=== PATIENT | male | born 1985 ===

== ENCOUNTER 2018-08-22 23:03 | Emergency (ER) | payer SELFPAY ==
[2018-08-22 23:11] VITALS: BP 137/87; PULSE 56; RESP 16; TEMP 98; O2SAT 98
--- NOTE | 2018-08-22 23:29 | C.PDOC ---
History Of Present Illness Patient presents with diffuse abdominal pain has had it for "years" and states he has been worked up without any etiology found. Worse this am. Cramping abdominal pain. No f/c/n/v. Tolerating po. Time Seen by Provider: 08/22/18 23:29 Chief Complaint (Nursing): Abdominal Pain Past Medical History Reviewed: Historical Data, Nursing Documentation, Vital Signs Vital Signs: Last Vital Signs Temp 98.0 F 08/22/18 23:08 Pulse 56 L 08/22/18 23:08 Resp 16 08/22/18 23:08 BP 137/87 08/22/18 23:08 Pulse Ox 98 08/22/18 23:08 - Medical History PMH: HTN - [facility] Procedures CLOSURE SKIN & SUBCUTANEOUS NEC (05/23/14) INJECT/INFUSE NEC (09/29/13) Family History: States: No Known Family Hx - Social History Hx Tobacco Use: No Hx Alcohol Use: Yes Hx Substance Use: No - Immunization History Hx Tetanus Toxoid Vaccination: No (UTD) Hx Influenza Vaccination: No Hx Pneumococcal Vaccination: No Review Of Systems Constitutional: Negative for: Fever, Chills Cardiovascular: Negative for: Chest Pain Respiratory: Negative for: Shortness of Breath Gastrointestinal: Positive for: Abdominal Pain. Negative for: Nausea, Vomiting Genitourinary: Negative for: Dysuria Musculoskeletal: Negative for: Back Pain Skin: Negative for: Rash Neurological: Negative for: Weakness Psych: Positive for: Anxiety Physical Exam - Physical Exam Appears: Non-toxic, No Acute Distress Skin: Warm, Dry Oral Mucosa: Moist Chest: Symmetrical Cardiovascular: Rhythm Regular Respiratory: No Rales, No Rhonchi, No Wheezing Gastrointestinal/Abdominal: Bowel Sounds (tympanic to percussion), Soft, Tenderness, No Distention, No Guarding, No Rebound Back: Normal Inspection Extremity: Normal ROM Extremity: Bilateral: Atraumatic Pulses: Left Dorsalis Pedis: Normal, Right Dorsalis Pedis: Normal Neurological/Psych: Oriented x3 Gait: Steady ED Course And Treatment - Laboratory Results Result Diagrams: 08/23/18 01:30 O2 Sat by Pulse Oximetry: 98 Disposition Counseled Patient/Family Regarding: Studies Performed, Diagnosis - Disposition Disposition: HOME/ ROUTINE Disposition Time: 23:29 Condition: GOOD Instructions: Electrohydraulic Lithotripsy, Acute Abdomen (Belly Pain), Adult (DC) Forms: [employer] ([place]ian) - Clinical Impression Clinical Impression: Biliary colic, Abdominal pain
[2018-08-22] MEDS ORDERED: Sodium Chloride 0.9% 1,000 ML IV ONE (23:33)
[2018-08-23] MEDS ORDERED: Sodium Chloride 0.9% 1,000 ML ONE (00:12)
[2018-08-23] MEDS ORDERED: Iodixanol 320 MG/ML 100 ML BOTTLE IV ONE (00:13)
[2018-08-23 05:44] LABS: BLOOD UREA NITROGEN 22 mg/dL (9-20); GFR NON-AFRICAN AMERICAN > 60
[2018-08-23 05:45] LABS: ALB/GLOB RATIO 1.5 (1.0-2.1); ALBUMIN 4.7 g/dL (3.5-5.0); ALT/SGPT 26 U/L (21-72); AST/SGOT 30 U/L (17-59); LIPASE 153 U/L (23-300)
[2018-08-23 06:52] LABS: BASO # 0.1 K/uL (0.0-0.2); BASO % 1.4 % (0.0-2.0); EOS # 0.1 K/uL (0.0-0.7); EOS % 2.2 % (0.0-4.0); HEMOGLOBIN 14.9 g/dL (12.0-18.0); LYMPH # 1.8 K/uL (1.0-4.3); LYMPH % 36.2 % (20.0-40.0); MEAN CELL VOLUME 88.9 fL (80.0-94.0); MEAN CORPUSCULAR HGB CONC 33.8 g/dL (33.0-37.0); MONO # 0.3 K/uL (0.0-0.8); MONO % 5.3 % (0.0-10.0); NEUT # 2.7 K/uL (1.8-7.0); NEUT % 54.9 % (50.0-75.0); NRBC % 0.1 % (0.0-2.0); RBC 4.97 Mil/uL (4.40-5.90); RED CELL DISTRIBUTION WIDTH 12.3 % (11.5-14.5); WHITE BLOOD COUNT 4.9 K/uL (4.8-10.8)
[2018-08-23 07:55] LABS: URINE BILIRUBIN NEGATIVE (NEGATIVE); URINE BLOOD NEGATIVE (NEGATIVE); URINE CLARITY Clear (Clear); URINE COLOR YELLOW (YELLOW); URINE GLUCOSE (UA) Normal (Normal); URINE PROTEIN NEGATIVE (NEGATIVE)
[2018-08-23 07:56] LABS: URINE LEUKOCYTE ESTERASE Negative Leu/uL (Negative); URINE UROBILINOGEN Normal mg/dL (0.2-1.0)
--- NOTE | 2018-08-23 10:36 | CT ---
Date of service: 08/23/2018 PROCEDURE: CT Abdomen and Pelvis with contrast HISTORY: diffuse abd pain COMPARISON: Not available TECHNIQUE: Contrast dose: 100 mL Visipaque 320 Radiation dose: Total exam DLP = 771.83 mGy-cm. This CT exam was performed using one or more of the following dose reduction techniques: Automated exposure control, adjustment of the mA and/or kV according to patient size, and/or use of iterative reconstruction technique. FINDINGS: LOWER THORAX: Unremarkable. LIVER: Unremarkable. No gross lesion or ductal dilatation. GALLBLADDER AND BILE DUCTS: The gallbladder is contracted. No calcified gallstones are seen. The gallbladder wall enhances but is not thickened and there is no pericholecystic fluid. PANCREAS: Unremarkable. No gross lesion or ductal dilatation. SPLEEN: Unremarkable. ADRENALS: Unremarkable. No mass. KIDNEYS AND URETERS: Unremarkable. No hydronephrosis. No solid mass. VASCULATURE: Unremarkable. No aortic aneurysm. No aortic atherosclerotic calcification or mural plaque present. BOWEL: Sigmoid diverticulosis is noted, without evidence of diverticulitis. There is no bowel obstruction. There are scattered colonic diverticula seen elsewhere. No other abnormal bowel loops are identified. APPENDIX: Normal appendix. PERITONEUM: Unremarkable. No free fluid. No free air. LYMPH NODES: Unremarkable. No enlarged lymph nodes. BLADDER: Suboptimally distended. Grossly normal. REPRODUCTIVE: Normal prostate. BONES: No acute fracture. OTHER FINDINGS: None. IMPRESSION: No acute abnormality. Sigmoid diverticulosis without evidence of diverticulitis. Contracted gallbladder. Otherwise unremarkable. The preliminary findings for this examination were reported by [facility] at 2:45 a.m. on 08/23/2018. There is discordance of this report with the preliminary findings. The gallbladder wall does not appear thickened although it does enhance, a finding of questionable significance. If there is clinical concern regarding cholecystitis, consider further evaluation with abdominal ultrasound examination.
== END 2018-08-23 03:30 | disposition home or self-care (01) ==
LOC: C.ER 23:03
DX: K80.50 Calculus of bile duct without cholangitis or cholecystitis without obstruction (principal)
CPT/HCPCS: 74177; 80053; 81001; 83690; 85025; 96361; 96374; 96375; 99281; C9113; J1885; J7030; Q9967

== ENCOUNTER 2018-09-12 11:59 | Outpatient (CLI) | payer OTHER | END 2018-09-12 12:00 | disposition home or self-care (01) | LOC: C.USIC 12:00 ==